=== PATIENT | male | born 1995 | race Caucasian/White ===

== ENCOUNTER 2016-09-24 20:04 | Emergency (ER) | payer BC ==
[~2016-09-24] VITALS: Ht 172.7 cm; Wt 66.0 kg
[~2016-09-24 20:04] MED LIST: ADVIL200 MG PO; FLEXERIL5 MG PO; IBUPROFEN400 MG PO; NAPROSYN500 MG PO; ULTRAM50 MG PO
[2016-09-24 20:12] VITALS: BP 140/67
[2016-09-24] MEDS ORDERED: NORCO 5/3251 TABLET PO (21:19)
[2016-09-24] MEDS ORDERED: PEN-VEE K,VEET500 MG PO (21:19)
== END 2016-09-24 21:24 | disposition home or self-care (01) ==
LOC: EXP 20:04 → EME 20:04 → EXP 21:24
DX: K02.9 Dental caries, unspecified (principal); K08.89 Other specified disorders of teeth and supporting structures; R51 Headache
CPT/HCPCS: 99281; 99283